=== PATIENT | female | born 1945 | race Caucasian/White ===

== ENCOUNTER 2017-06-15 10:18 | Inpatient (IN) | payer OTHER ==
[~2017-06-15] VITALS: Ht 167.6 cm; Wt 93.1 kg
[~2017-06-15 10:18] MED LIST: ADULT LOW DOSE81 M1 PO; AMOX TR-K CLV1 EAC4 PO; ASPIRIN81 M1 PO; AVASTIN400 MG/16 IV; AZITHROMYCIN250 MG PO; BACTRIM,SEPT1 TABLET PO; Betapace,Sorine PO; CALCIUM600 MG PO; CARDURA2 M1 PO; CEFTIN250 MG PO; CELEBREX200 MG PO; CENTRUM SILVER1 EACH PO; COLACE100 MG PO; COREG12.5 M1 PO; COUMADIN3 M1 PO; COUMADIN6 MG PO; Coumadin,Jantoven PO; DILTIAZEM 24HR240 MG PO; DOXAZOSIN MESYLA2 MG PO; ENDOCET 5-3251 EACH PO; FERROUS SULFAT325 MG PO; FOLIC ACID MC; FOLIC ACID0.4 MG PO; FOLIC ACID1 MG PO; FUROSEMIDE40 MG PO; GLUCOVANCE 21 TABLET PO; GLUCOVANCE 51 TABLET PO; GLYBURID-METFO1 EAC3 PO; GLYBURIDE-METF1 EAC3 PO; HUMALOG100 UNIT/1 SC; IRON325 M1 PO; KLOR-CON 1010 ME1 PO; LANTUS 10100 UNITS/ SQ; LANTUS 3 M100 UNITS/ SC; LANTUS 3 M100 UNITS1 SC; LASIX40 MG PO; LIPITOR80 MG PO; Lopressor PO; METOPROLOL TART50 MG PO; MUCINEX600 MG PO; Micro-K,K-Tab,K-Dur, PO; NOVOLOG 10100 UNITS/ SC; OXYCODONE HCL5 MG PO; PERCOCET 5/31 TABLET PO; PLAVIX75 MG PO; PREDNISONE20 MG PO; PROCARDIA XL30 MG PO; PROVENTIL,2.5 MG/3 M IH; RHINOCORT AQUA8.6 G1 NS; SENOKOT S,PE1 TABLET PO; SIMVASTATIN40 MG PO; SOTALOL80 MG PO; SPIRIVA1 INHALATI IH; TOPROL XL50 MG PO; TYLENOL ARTHRI650 MG PO; VALSARTAN-HCTZ1 EAC3 PO; VITAMIN C500 M1 PO; Vicodin,Norco 5/325 PO; WELCHOL625 MG PO; WOMEN'S DAILY1 EAC2 PO; XYZAL5 MG PO; ZESTRIL,PRINIV2.5 MG PO; ZESTRIL20 MG PO; ZETIA10 MG PO; ZOCOR80 MG PO; ZYRTEC5 MG PO; Zestril,Prinivil PO
[2017-06-15 11:16] LABS: HEMATOCRIT 36.6 % (36.0-46.0); MCHC 29.8 G/DL (30.0-36.0); MCV 100.8 FL (83-99); MEAN PLAT.VOLUME 9.5 uM^3 (9.5-12.4); PLATELET COUNT 264 K/uL (156-360); RBC DIS.WIDTH-CV 14.5 % (11.8-14.6); RBC DIS.WIDTH-SD 53.5 % (39-53); RED BLOOD COUNT 3.63 M/uL (3.80-5.20); WHITE BLOOD COUNT 10.4 K/uL (4.1-10.2)
[2017-06-15 11:26] LABS: CHLORIDE 113 mEq/L (99-109); SODIUM 139 mEq/L (136-147)
[2017-06-15 11:28] LABS: GLUCOSE 176 mg/dL (70-99)
[2017-06-15 11:29] LABS: ANION GAP 7 MEQ/L (2-14)
[2017-06-15 11:32] LABS: GFR ESTIMATE (CALCULATED) 23 mL/min/
[2017-06-15 11:33] LABS: UREA NITROGEN (BUN) 37 mg/dL (9-23)
[2017-06-15 11:38] LABS: TROP-I INTERPRETATION NEGATIVE; TROPONIN-I 0.01 ng/mL (0.0-0.30)
[2017-06-15] MEDS ORDERED: SPIRIVA18 MCG IH (12:37)
[2017-06-15] MEDS ORDERED: PLAVIX75 MG PO (12:38)
[2017-06-15] MEDS ORDERED: PERCOCET 7.51 TABLET PO (12:38)
[2017-06-15] MEDS ORDERED: ATORVASTATIN CA40 MG PO (12:39)
[2017-06-15] MEDS ORDERED: ZITHROMAX250 MG PO (12:40)
[2017-06-15] MEDS ORDERED: DIFLUCAN100 MG PO (12:41)
[2017-06-15] MEDS ORDERED: PRINIVIL20 MG PO (12:42)
[2017-06-15] MEDS ORDERED: ADVAIR 250/501 DISK IH (12:45)
[2017-06-15 16:03] VITALS: BP 120/58
[2017-06-15 18:41] VITALS: BP 123/57
[2017-06-15 19:20] VITALS: BP 129/58
[2017-06-15 20:08] LABS: ANION GAP 8 MEQ/L (2-14); CHLORIDE 108 MEQ/L (99-109); GFR ESTIMATE (CALCULATED) 22 mL/min/; GLUCOSE 154 mg/dL (70-99); POTASSIUM 5.5 MEQ/L (3.7-5.4); SAMPLE HEMOLYSIS CHECK 0; SAMPLE ICTERIC CHECK 0; SAMPLE LIPEMIA CHECK 0; SODIUM 137 MEQ/L (136-147); UREA NITROGEN (BUN) 40 mg/dL (9-23)
[2017-06-15 21:22] LABS: POINT-OF-CARE METER ID UU14314088
[2017-06-15 23:00] VITALS: BP 138/65
[2017-06-16 04:30] VITALS: BP 133/65
[2017-06-16 07:10] LABS: ANION GAP 6 MEQ/L (2-14); CHLORIDE 113 MEQ/L (99-109); GFR ESTIMATE (CALCULATED) 25 mL/min/; POTASSIUM 5.2 MEQ/L (3.7-5.4); SAMPLE HEMOLYSIS CHECK 0; SAMPLE ICTERIC CHECK 0; SAMPLE LIPEMIA CHECK 0; SODIUM 142 MEQ/L (136-147); UREA NITROGEN (BUN) 36 mg/dL (9-23)
[2017-06-16 07:15] LABS: GLUCOSE 108 mg/dL (70-99)
[2017-06-16 08:00] VITALS: BP 145/66
[2017-06-16 08:01] LABS: POINT-OF-CARE METER ID UU14174216
[2017-06-16 09:01] LABS: Estimated Average Glucose 108 mg/dL (70-123); HEMOGLOBIN A1c (GLYCOHEMOGLOB) 5.4 % HGB (Below 5.7)
[2017-06-16 11:40] LABS: POINT-OF-CARE METER ID UU13113698
[2017-06-16 12:35] VITALS: BP 168/71
[2017-06-16 12:56] LABS: ADD MIUA? YES; BILIRUBIN NEGATIVE; BLOOD MODERATE; COLOR YELLOW ((YELLOW)); GLUCOSE (STRIP) 50; KETONES NEGATIVE; LEUKOCYTES LARGE; NITRITE NEGATIVE; PROTEIN (STRIP) 100; UROBILINOGEN 0.2 MG/DL (0.2-1.0)
[2017-06-16 13:31] LABS: BACTERIA RARE /HPF; EPITHELIAL CELLS RARE /HPF; MUCUS NONE SEEN /LPF; WHITE BLOOD CELLS TNTC /HPF (0-5)
[2017-06-16 15:55] VITALS: BP 146/69
[2017-06-16 16:53] LABS: POINT-OF-CARE METER ID UU13113698
[2017-06-16 19:00] VITALS: BP 142/63
[2017-06-16 20:54] LABS: POINT-OF-CARE METER ID UU13113698
[2017-06-17] VITALS (8 sets, daily range): BP systolic 138–160; BP diastolic 62–75
[2017-06-17 05:28] LABS: BASOPHIL COUNT 0.1 K/uL (0-0.1); EOSINOPHIL (%) 0.8 % (0-5); EOSINOPHIL COUNT 0.1 K/uL (0-0.3); HEMATOCRIT 38.1 % (36.0-46.0); IMMATURE GRANULOCYTE (%) 0.4 % (0.0-0.7); IMMATURE GRANULOCYTE COUNT 0.1 K/uL; INSTRUMENT ABS NEUTROPHIL CT 10.4 K/uL; LYMPHOCYTE COUNT 0.8 K/uL (1.0-2.8); MCH 29.1 PG (29.0-34.0); MCHC 28.9 G/DL (30.0-36.0); MCV 100.8 FL (83-99); MONOCYTE COUNT 0.7 K/uL (0-0.8); NEUTROPHIL (%) 86.1 % (45-76); NEUTROPHIL COUNT 10.4 K/uL (1.8-6.4); PLATELET COUNT 292 K/uL (156-360); RBC DIS.WIDTH-CV 14.5 % (11.8-14.6); RBC DIS.WIDTH-SD 53.3 % (39-53); RED BLOOD COUNT 3.78 M/uL (3.80-5.20); WHITE BLOOD COUNT 12.1 K/uL (4.1-10.2)
[2017-06-17 05:51] LABS: ANION GAP 7 MEQ/L (2-14); CHLORIDE 113 MEQ/L (99-109); GFR ESTIMATE (CALCULATED) 31 mL/min/; GLUCOSE 146 mg/dL (70-99); MAGNESIUM 1.7 mg/dl (1.3-2.7); POTASSIUM 5.1 MEQ/L (3.7-5.4); SAMPLE HEMOLYSIS CHECK 0; SAMPLE ICTERIC CHECK 0; SAMPLE LIPEMIA CHECK 0; SODIUM 145 MEQ/L (136-147); UREA NITROGEN (BUN) 29 mg/dL (9-23)
[2017-06-17 06:10] LABS: URIC ACID 6.1 mg/dL (3.1-9.2)
[2017-06-17 07:59] LABS: POINT-OF-CARE METER ID UU13113781
[2017-06-17 09:50] LABS: INTERNAL CONTROL VALID? YES
[2017-06-17 11:28] LABS: POINT-OF-CARE METER ID UU13113781
[2017-06-17 16:25] LABS: POINT-OF-CARE METER ID UU13113781
[2017-06-17 21:11] LABS: POINT-OF-CARE METER ID UU14314088
[2017-06-18 03:36] VITALS: BP 158/74
[2017-06-18 06:15] LABS: ANION GAP 5 MEQ/L (2-14); CHLORIDE 111 MEQ/L (99-109); GFR ESTIMATE (CALCULATED) 34 mL/min/; POTASSIUM 4.3 MEQ/L (3.7-5.4); SAMPLE HEMOLYSIS CHECK 0; SAMPLE ICTERIC CHECK 0; SAMPLE LIPEMIA CHECK 0; SODIUM 141 MEQ/L (136-147); UREA NITROGEN (BUN) 26 mg/dL (9-23)
[2017-06-18 06:17] LABS: GLUCOSE 56 mg/dL (70-99)
[2017-06-18 07:35] LABS: POINT-OF-CARE METER ID UU14174216
[2017-06-18 07:51] VITALS: BP 153/70
[2017-06-18 08:18] LABS: POINT-OF-CARE METER ID UU14174216
[2017-06-18 11:09] VITALS: BP 143/78
[2017-06-18 11:27] LABS: POINT-OF-CARE METER ID UU14174216
[2017-06-18 16:36] LABS: POINT-OF-CARE METER ID UU14174216
[2017-06-18 17:19] VITALS: BP 157/70
[2017-06-18 17:32] LABS: POINT-OF-CARE METER ID UU14174216
[2017-06-18 18:19] LABS: POINT-OF-CARE METER ID UU13113781
[2017-06-18 18:34] LABS: POINT-OF-CARE METER ID UU13113781
[2017-06-18 19:27] VITALS: BP 139/65
[2017-06-18 21:20] LABS: POINT-OF-CARE METER ID UU13113781
[2017-06-18 22:43] VITALS: BP 138/60
[2017-06-19 02:58] VITALS: BP 134/61
[2017-06-19 05:01] LABS: CHLORIDE 112 mEq/L (99-109); POTASSIUM 4.9 mEq/L (3.7-5.4); SODIUM 142 mEq/L (136-147)
[2017-06-19 05:03] LABS: GLUCOSE 49 mg/dL (70-99)
[2017-06-19 05:04] LABS: ANION GAP 6 MEQ/L (2-14)
[2017-06-19 05:07] LABS: GFR ESTIMATE (CALCULATED) 34 mL/min/
[2017-06-19 05:08] LABS: UREA NITROGEN (BUN) 25 mg/dL (9-23)
[2017-06-19 08:19] LABS: POINT-OF-CARE METER ID UU14314088
[2017-06-19 08:30] VITALS: BP 141/63
[2017-06-19 11:42] LABS: POINT-OF-CARE METER ID UU14314088
[2017-06-19 12:24] VITALS: BP 137/63
[2017-06-19 16:34] LABS: POINT-OF-CARE METER ID UU14314088
[2017-06-19 17:21] VITALS: BP 157/74
[2017-06-19 19:10] VITALS: BP 141/68
[2017-06-19 20:38] LABS: POINT-OF-CARE METER ID UU14314088
[2017-06-20] VITALS (7 sets, daily range): BP systolic 126–165; BP diastolic 59–74
[2017-06-20 05:59] LABS: INTER. NORMALIZED RATIO 1.1
[2017-06-20 06:02] LABS: PTT 35.5 SEC (25-37)
[2017-06-20 06:26] LABS: ANION GAP 3 MEQ/L (2-14); CHLORIDE 112 MEQ/L (99-109); GFR ESTIMATE (CALCULATED) 31 mL/min/; POTASSIUM 5.1 MEQ/L (3.7-5.4); SAMPLE HEMOLYSIS CHECK 0; SAMPLE ICTERIC CHECK 0; SAMPLE LIPEMIA CHECK 0; SODIUM 142 MEQ/L (136-147); UREA NITROGEN (BUN) 25 mg/dL (9-23)
[2017-06-20 06:27] LABS: GLUCOSE 88 mg/dL (70-99)
[2017-06-20 11:27] LABS: POINT-OF-CARE METER ID UU14314088
[2017-06-20 16:31] LABS: POINT-OF-CARE METER ID UU13113698
[2017-06-20 20:55] LABS: POINT-OF-CARE METER ID UU13113698
[2017-06-21 04:14] VITALS: BP 135/62
[2017-06-21 07:00] VITALS: BP 189/77
[2017-06-21 08:26] LABS: POINT-OF-CARE METER ID UU14174216
[2017-06-21 10:13] LABS: TYPE OF FLUID PLEURAL
[2017-06-21 11:25] LABS: BODY FLUID LDH 37 IU/L
[2017-06-21 11:28] LABS: BODY FLUID PROTEIN < 3.0 G/DL
[2017-06-21 11:51] LABS: POINT-OF-CARE METER ID UU14174216
[2017-06-21 12:02] LABS: BODY FLUID EOSINOPHILS 0 % (0-25); BODY FLUID RBC'S < 1000 /MM^3 (0-100); BODY FLUID WBC'S 253 /MM^3 (0-500); MONONUCLEAR WBC'S 83 %; POLYNUCLEAR WBC'S 17 % (0-25)
[2017-06-21 13:40] LABS: LACTATE DEHYDROGENASE 195 IU/L (20-246)
[2017-06-21 13:41] LABS: GLUCOSE 137 mg/dL (70-99)
[2017-06-21 17:16] LABS: POINT-OF-CARE METER ID UU13113781
[2017-06-21 19:07] VITALS: BP 133/61
[2017-06-21 21:11] LABS: POINT-OF-CARE METER ID UU13113781
[2017-06-21 23:39] VITALS: BP 124/63
[2017-06-22 03:18] VITALS: BP 147/65
[2017-06-22 07:10] VITALS: BP 161/74
[2017-06-22 07:51] LABS: POINT-OF-CARE METER ID UU14314088
[2017-06-22 08:58] VITALS: BP 161/74
[2017-06-22 11:13] LABS: POINT-OF-CARE METER ID UU14174216
[2017-06-22 11:14] VITALS: BP 162/70
[2017-06-22 16:50] LABS: POINT-OF-CARE METER ID UU14174216
[2017-06-22 19:57] VITALS: BP 171/70
[2017-06-22 20:55] LABS: POINT-OF-CARE METER ID UU14174216
[2017-06-23 00:30] VITALS: BP 126/59
[2017-06-23 03:24] VITALS: BP 158/69
[2017-06-23 06:50] VITALS: BP 150/78
[2017-06-23 08:22] LABS: POINT-OF-CARE METER ID UU13113698; POINT-OF-CARE USER ID NUTSLF44
[2017-06-23 11:06] VITALS: BP 149/67
[2017-06-23 11:51] LABS: POINT-OF-CARE METER ID UU13113698; POINT-OF-CARE USER ID NUTSLF44
== END 2017-06-23 13:25 | disposition home health service (06) | DRG 193 ==
LOC: EME 10:18 → 4EAST 13:09 → EDOF 13:09 → ENRESERV 13:10 → 3EAST 15:28 → ENRESERV 17:49 → 4EAST 18:21
PROVIDERS: Emergency Medicine; Internal Medicine; Internal Medicine Nephrology; Internal Medicine Pulmonary Disease; Radiology Diagnostic Radiology
PROC: 0W993ZZ Drainage of Right Pleural Cavity, Percutaneous Approach (ICD-10-PCS; principal; 2017-06-21)
DX: J18.9 Pneumonia, unspecified organism (principal); J90 Pleural effusion, not elsewhere classified; J44.0 Chronic obstructive pulmonary disease with (acute) lower respiratory infection; J44.1 Chronic obstructive pulmonary disease with (acute) exacerbation; N17.0 Acute kidney failure with tubular necrosis; T39.395A Adverse effect of other nonsteroidal anti-inflammatory drugs [NSAID], initial encounter; T46.4X5A Adverse effect of angiotensin-converting-enzyme inhibitors, initial encounter; T50.1X5A Adverse effect of loop [high-ceiling] diuretics, initial encounter; E87.5 Hyperkalemia; E11.22 Type 2 diabetes mellitus with diabetic chronic kidney disease; I12.9 Hypertensive chronic kidney disease with stage 1 through stage 4 chronic kidney disease, or unspecified chronic kidney disease; N18.3 Chronic kidney disease, stage 3 (moderate); E78.5 Hyperlipidemia, unspecified; I08.0 Rheumatic disorders of both mitral and aortic valves; I25.10 Atherosclerotic heart disease of native coronary artery without angina pectoris; I48.0 Paroxysmal atrial fibrillation; E66.9 Obesity, unspecified; Z96.643 Presence of artificial hip joint, bilateral; Z68.32 Body mass index [BMI] 32.0-32.9, adult; Z79.4 Long term (current) use of insulin; Z99.81 Dependence on supplemental oxygen; Z95.5 Presence of coronary angioplasty implant and graft; Z85.43 Personal history of malignant neoplasm of ovary; Z87.891 Personal history of nicotine dependence; Z79.82 Long term (current) use of aspirin; Z79.02 Long term (current) use of antithrombotics/antiplatelets
CPT/HCPCS: 71010; 71020; 76770; 76942; 80048; 80048 91; 80069; 81003; 82945; 82947; 82948; 83036; 83615; 83615 91; 83735; 84100; 84155; 84157; 84484; 84550; 85025; 85027; 85610; 85730; 87070; 87075; 87116; 87205; 87206; 87449; 88108; 88305; 89051; 93005; 94010; 94640; 94640 76; 94760; 94799; 97530 GO; 97530 GP; 99202; 99281; 99285; J0456; J0696; J1815; J7030; J7050

== ENCOUNTER → 2017-07-25 | Outpatient (CLI) | payer OTHER ==
[~2017-07-25] VITALS: Ht 167.6 cm; Wt 86.0 kg
[~2017-07-25] MED LIST changes: +ADVAIR 250/501 DISK IH; +ATORVASTATIN CA40 MG PO; +DIFLUCAN100 MG PO; +PERCOCET 7.51 TABLET PO; +PRINIVIL20 MG PO; +SPIRIVA18 MCG IH; +ZITHROMAX250 MG PO
[2017-07-25 09:36] LABS: TYPE OF FLUID PLEURAL
[2017-07-25 09:48] LABS: BODY FLUID RBC'S < 1000 /MM^3 (0-100); BODY FLUID WBC'S 461 /MM^3 (0-500)
[2017-07-25 10:10] LABS: BODY FLUID EOSINOPHILS 0 % (0-25); MONONUCLEAR WBC'S 88 %; POLYNUCLEAR WBC'S 12 % (0-25)
[2017-07-25 10:18] LABS: BODY FLUID LDH 42 IU/L; BODY FLUID PROTEIN < 3.0 G/DL
== END | disposition home or self-care (01) ==
LOC: RAD 08:30 → AMB 08:30 → RAD 08:33
PROVIDERS: Radiology Diagnostic Radiology
PROC: 0W993ZZ Drainage of Right Pleural Cavity, Percutaneous Approach (ICD-10-PCS; principal; 2017-07-25)
DX: J90 Pleural effusion, not elsewhere classified (principal)
CPT/HCPCS: 76942; 82945; 83615 91; 84157; 87070; 87205; 88108; 89051

== ENCOUNTER 2017-07-30 17:13 | Emergency (ER) | payer OTHER ==
[~2017-07-30] VITALS: Ht 167.6 cm; Wt 88.4 kg
[~2017-07-30 17:13] MED LIST changes: -SPIRIVA18 MCG IH
[2017-07-30 17:29] LABS: POINT-OF-CARE METER ID UU13113747; POINT-OF-CARE USER ID LABGLH01
[2017-07-30 17:47] LABS: HEMATOCRIT 36.5 % (36.0-46.0); MCH 30.3 PG (29.0-34.0); MCHC 30.4 G/DL (30.0-36.0); MCV 99.7 FL (83-99); MEAN PLAT.VOLUME 9.4 uM^3 (9.5-12.4); PLATELET COUNT 289 K/uL (156-360); RBC DIS.WIDTH-CV 14.5 % (11.8-14.6); RBC DIS.WIDTH-SD 53.1 % (39-53); RED BLOOD COUNT 3.66 M/uL (3.80-5.20); WHITE BLOOD COUNT 8.5 K/uL (4.1-10.2)
[2017-07-30 18:03] LABS: CHLORIDE 108 mEq/L (99-109); POTASSIUM 5.2 mEq/L (3.7-5.4); SODIUM 140 mEq/L (136-147)
[2017-07-30 18:04] LABS: GLUCOSE 142 mg/dL (70-99)
[2017-07-30 18:06] LABS: ANION GAP 9 MEQ/L (2-14)
[2017-07-30 18:08] LABS: GFR ESTIMATE (CALCULATED) 21 mL/min/
[2017-07-30 18:09] LABS: UREA NITROGEN (BUN) 40 mg/dL (9-23)
[2017-07-30 18:10] LABS: TROP-I INTERPRETATION NEGATIVE; TROPONIN-I < 0.01 ng/mL (0.0-0.30)
[2017-07-30 19:30] LABS: POINT-OF-CARE METER ID UU13113747
[2017-07-30 19:54] LABS: ADD MIUA? YES; BILIRUBIN NEGATIVE; BLOOD NEGATIVE; COLOR YELLOW ((YELLOW)); GLUCOSE (STRIP) 50; KETONES NEGATIVE; LEUKOCYTES NEGATIVE; NITRITE NEGATIVE; PROTEIN (STRIP) >=500; SPECIFIC GRAVITY 1.011 (1.000-1.030); UROBILINOGEN 0.2 MG/DL (0.2-1.0)
[2017-07-30 19:57] LABS: BACTERIA RARE /HPF; EPITHELIAL CELLS RARE /HPF; HYALINE CASTS 0-5 /LPF; MUCUS TRACE /LPF; RED BLOOD CELLS 0-5 /HPF (0-5); WHITE BLOOD CELLS 0-5 /HPF (0-5)
[2017-07-30 20:46] LABS: POINT-OF-CARE METER ID UU13113747
[2017-07-30 22:42] VITALS: BP 183/74
== END 2017-07-31 00:06 | disposition home or self-care (01) ==
LOC: EME 17:13
PROVIDERS: Physician Assistant Medical
DX: E11.649 Type 2 diabetes mellitus with hypoglycemia without coma (principal); Z79.4 Long term (current) use of insulin; I13.0 Hypertensive heart and chronic kidney disease with heart failure and stage 1 through stage 4 chronic kidney disease, or unspecified chronic kidney disease; I50.9 Heart failure, unspecified; E11.22 Type 2 diabetes mellitus with diabetic chronic kidney disease; N18.9 Chronic kidney disease, unspecified; E78.5 Hyperlipidemia, unspecified; J44.9 Chronic obstructive pulmonary disease, unspecified; Z79.82 Long term (current) use of aspirin; Z79.02 Long term (current) use of antithrombotics/antiplatelets; Z85.43 Personal history of malignant neoplasm of ovary; Z96.643 Presence of artificial hip joint, bilateral; Z87.891 Personal history of nicotine dependence
CPT/HCPCS: 71010; 80048; 81003; 82948; 84484; 85027; 93005; 99281; 99285; J7040

== ENCOUNTER 2017-08-09 16:14 | Inpatient (IN) | payer OTHER ==
[~2017-08-09] VITALS: Ht 165.1 cm; Wt 86.7 kg
[2017-08-09 17:07] LABS: EOSINOPHIL (%) 0.2 % (0-5); HEMATOCRIT 16.6 % (36.0-46.0); IMMATURE GRANULOCYTE COUNT 0.2 K/uL; INSTRUMENT ABS NEUTROPHIL CT 14.5 K/uL; INTER. NORMALIZED RATIO 1.1; LYMPHOCYTE COUNT 1.2 K/uL (1.0-2.8); MCH 31.1 PG (29.0-34.0); MCHC 30.7 G/DL (30.0-36.0); MCV 101.2 FL (83-99); MEAN PLAT.VOLUME 9.8 uM^3 (9.5-12.4); MONOCYTE (%) 3.8 % (3-12); MONOCYTE COUNT 0.6 K/uL (0-0.8); NEUTROPHIL (%) 87.9 % (45-76); NEUTROPHIL COUNT 14.5 K/uL (1.8-6.4); PLATELET COUNT 337 K/uL (156-360); PROTHROMBIN TIME 12.7 SEC (10.2-12.9); RBC DIS.WIDTH-CV 14.8 % (11.8-14.6); RBC DIS.WIDTH-SD 54.6 % (39-53); RED BLOOD COUNT 1.64 M/uL (3.80-5.20); WHITE BLOOD COUNT 16.5 K/uL (4.1-10.2)
[2017-08-09 17:09] LABS: PTT 29.8 SEC (25-37)
[2017-08-09 17:16] LABS: CHLORIDE 107 mEq/L (99-109); POTASSIUM 5.8 mEq/L (3.7-5.4); SODIUM 138 mEq/L (136-147)
[2017-08-09 17:18] LABS: GLUCOSE 263 mg/dL (70-99)
[2017-08-09 17:19] LABS: ANION GAP 11 MEQ/L (2-14)
[2017-08-09 17:20] LABS: TOTAL BILIRUBIN 0.1 mg/dL (0.0-1.0)
[2017-08-09 17:22] LABS: ALKALINE PHOSPHATASE 39 IU/L (3-129); GFR ESTIMATE (CALCULATED) 22 mL/min/
[2017-08-09 17:27] LABS: TROP-I INTERPRETATION NEGATIVE; TROPONIN-I < 0.01 ng/mL (0.0-0.30); UREA NITROGEN (BUN) 116 mg/dL (9-23)
[2017-08-09 18:35] LABS: ADD MIUA? YES; BILIRUBIN NEGATIVE; BLOOD NEGATIVE; COLOR YELLOW ((YELLOW)); GLUCOSE (STRIP) 50; KETONES NEGATIVE; LEUKOCYTES TRACE; NITRITE NEGATIVE; PROTEIN (STRIP) >=500; SPECIFIC GRAVITY 1.014 (1.000-1.030); UROBILINOGEN 0.2 MG/DL (0.2-1.0)
[2017-08-09 18:47] LABS: BACTERIA NONE SEEN /HPF; EPITHELIAL CELLS RARE /HPF; MUCUS TRACE /LPF; RED BLOOD CELLS 0-5 /HPF (0-5); UCUL ADDED? NO; WHITE BLOOD CELLS 0-5 /HPF (0-5)
[2017-08-09] MEDS ORDERED: WELCHOL625 MG PO (19:38)
[2017-08-09] MEDS ORDERED: OXYCODONE-APAP1 EAC6 PO (19:43)
[2017-08-09] MEDS ORDERED: LEVOFLOXACIN500 MG PO (19:53)
[2017-08-09 20:30] VITALS: BP 123/57
[2017-08-09 21:38] VITALS: BP 117/67
[2017-08-09 22:58] LABS: POINT-OF-CARE METER ID UU14149397
[2017-08-09 23:53] VITALS: BP 95/49
[2017-08-10] VITALS (13 sets, daily range): BP systolic 100–128; BP diastolic 52–84
[2017-08-10 06:22] LABS: HEMATOCRIT 22.1 % (36.0-46.0)
[2017-08-10 06:42] LABS: ANION GAP 6 MEQ/L (2-14); CHLORIDE 114 MEQ/L (99-109); GFR ESTIMATE (CALCULATED) 23 mL/min/; POTASSIUM 4.9 MEQ/L (3.7-5.4); SAMPLE HEMOLYSIS CHECK 0; SAMPLE ICTERIC CHECK 0; SAMPLE LIPEMIA CHECK 0; SODIUM 143 MEQ/L (136-147); UREA NITROGEN (BUN) 96 mg/dL (9-23)
[2017-08-10 06:47] LABS: POINT-OF-CARE METER ID UU14149397
[2017-08-10 06:48] LABS: GLUCOSE 83 mg/dL (70-99)
[2017-08-10 06:54] LABS: MCV 96.9 FL (83-99)
[2017-08-10 11:48] LABS: POINT-OF-CARE METER ID UU14149397
[2017-08-10 14:11] LABS: POINT-OF-CARE METER ID UU13113819
[2017-08-10 15:39] LABS: HEMATOCRIT 27.2 % (36.0-46.0); MCH 30.5 PG (29.0-34.0); MCV 95.4 FL (83-99); MEAN PLAT.VOLUME 9.3 uM^3 (9.5-12.4); PLATELET COUNT 287 K/uL (156-360); RBC DIS.WIDTH-CV 15.7 % (11.8-14.6); RBC DIS.WIDTH-SD 53.5 % (39-53); WHITE BLOOD COUNT 13.4 K/uL (4.1-10.2)
[2017-08-10 15:40] LABS: RED BLOOD COUNT 2.85 M/uL (3.80-5.20)
[2017-08-10 16:43] LABS: POINT-OF-CARE METER ID UU14149397
[2017-08-11 01:58] LABS: POINT-OF-CARE METER ID UU14149397
[2017-08-11 04:35] VITALS: BP 138/63
[2017-08-11 06:16] LABS: HEMATOCRIT 25.6 % (36.0-46.0); MCH 31.5 PG (29.0-34.0); MCV 98.5 FL (83-99); MEAN PLAT.VOLUME 9.6 uM^3 (9.5-12.4); PLATELET COUNT 256 K/uL (156-360); RBC DIS.WIDTH-CV 16.1 % (11.8-14.6); RBC DIS.WIDTH-SD 56.1 % (39-53); WHITE BLOOD COUNT 10.1 K/uL (4.1-10.2)
[2017-08-11 06:38] LABS: ANION GAP 5 MEQ/L (2-14); CHLORIDE 114 MEQ/L (99-109); GFR ESTIMATE (CALCULATED) 26 mL/min/; POTASSIUM 4.7 MEQ/L (3.7-5.4); SAMPLE HEMOLYSIS CHECK 0; SAMPLE ICTERIC CHECK 0; SAMPLE LIPEMIA CHECK 0; SODIUM 143 MEQ/L (136-147); UREA NITROGEN (BUN) 76 mg/dL (9-23)
[2017-08-11 06:39] LABS: GLUCOSE 158 mg/dL (70-99)
[2017-08-11 07:31] LABS: POINT-OF-CARE METER ID UU14188577
[2017-08-11 07:40] VITALS: BP 127/63
[2017-08-11 07:44] VITALS: BP 124/56
[2017-08-11 11:40] LABS: POINT-OF-CARE METER ID UU14117124
[2017-08-11 11:45] VITALS: BP 126/60
[2017-08-11 16:21] VITALS: BP 115/57
[2017-08-11 16:40] LABS: POINT-OF-CARE METER ID UU14208753
[2017-08-11 17:37] LABS: MCV 98.5 FL (83-99)
[2017-08-11 18:35] LABS: UR CREATININE CONCENTRATION 56.2 MG/DL
[2017-08-11 19:39] VITALS: BP 125/60
[2017-08-11 21:39] LABS: POINT-OF-CARE METER ID UU14117124
[2017-08-12] VITALS (15 sets, daily range): BP systolic 95–131; BP diastolic 43–75
[2017-08-12 06:28] LABS: POINT-OF-CARE METER ID UU14149397
[2017-08-12 06:53] LABS: EOSINOPHIL COUNT 0.2 K/uL (0-0.3); HEMATOCRIT 24.8 % (36.0-46.0); IMMATURE GRANULOCYTE (%) 0.5 % (0.0-0.7); INSTRUMENT ABS NEUTROPHIL CT 5.5 K/uL; LYMPHOCYTE COUNT 1.1 K/uL (1.0-2.8); MCH 30.7 PG (29.0-34.0); MCHC 30.2 G/DL (30.0-36.0); MCV 101.6 FL (83-99); MEAN PLAT.VOLUME 9.9 uM^3 (9.5-12.4); MONOCYTE (%) 10.9 % (3-12); MONOCYTE COUNT 0.8 K/uL (0-0.8); NEUTROPHIL (%) 72.2 % (45-76); NEUTROPHIL COUNT 5.5 K/uL (1.8-6.4); PLATELET COUNT 254 K/uL (156-360); RBC DIS.WIDTH-CV 15.9 % (11.8-14.6); RBC DIS.WIDTH-SD 57.2 % (39-53); RED BLOOD COUNT 2.44 M/uL (3.80-5.20); WHITE BLOOD COUNT 7.6 K/uL (4.1-10.2)
[2017-08-12 07:17] LABS: ANION GAP 5 MEQ/L (2-14); CHLORIDE 114 MEQ/L (99-109); GFR ESTIMATE (CALCULATED) 20 mL/min/; POTASSIUM 5.1 MEQ/L (3.7-5.4); SAMPLE HEMOLYSIS CHECK 0; SAMPLE ICTERIC CHECK 0; SAMPLE LIPEMIA CHECK 0; SODIUM 144 MEQ/L (136-147); UREA NITROGEN (BUN) 64 mg/dL (9-23)
[2017-08-12 07:19] LABS: GLUCOSE 99 mg/dL (70-99)
[2017-08-12 12:07] LABS: POINT-OF-CARE METER ID UU14117124
[2017-08-12 17:11] LABS: POINT-OF-CARE METER ID UU14117124
[2017-08-12 21:57] LABS: POINT-OF-CARE METER ID UU14149397
[2017-08-13 00:26] VITALS: BP 100/48
[2017-08-13 02:44] LABS: HEMATOCRIT 31.8 % (36.0-46.0); MCV 99.1 FL (83-99)
[2017-08-13 03:30] VITALS: BP 118/55
[2017-08-13 06:31] LABS: POINT-OF-CARE METER ID UU14117124
[2017-08-13 06:37] LABS: ANION GAP 6 MEQ/L (2-14); CHLORIDE 113 MEQ/L (99-109); GFR ESTIMATE (CALCULATED) 18 mL/min/; GLUCOSE 127 mg/dL (70-99); POTASSIUM 5.4 MEQ/L (3.7-5.4); SAMPLE HEMOLYSIS CHECK 0; SAMPLE ICTERIC CHECK 0; SAMPLE LIPEMIA CHECK 0; SODIUM 143 MEQ/L (136-147); UREA NITROGEN (BUN) 61 mg/dL (9-23)
[2017-08-13 07:50] VITALS: BP 141/66
[2017-08-13 11:50] VITALS: BP 149/65
[2017-08-13 11:52] LABS: POINT-OF-CARE METER ID UU14117124
[2017-08-13 15:47] VITALS: BP 101/56
[2017-08-13 16:53] LABS: POINT-OF-CARE METER ID UU14149397
[2017-08-13 20:30] VITALS: BP 122/56
[2017-08-13 21:11] LABS: POINT-OF-CARE METER ID UU14117124
[2017-08-14 00:06] VITALS: BP 142/82
[2017-08-14 06:12] LABS: POINT-OF-CARE METER ID UU14149397
[2017-08-14 07:05] LABS: HEMATOCRIT 37.1 % (36.0-46.0); MCH 30.2 PG (29.0-34.0); MCHC 30.5 G/DL (30.0-36.0); MCV 99.2 FL (83-99); MEAN PLAT.VOLUME 9.5 uM^3 (9.5-12.4); PLATELET COUNT 314 K/uL (156-360); RBC DIS.WIDTH-CV 16.8 % (11.8-14.6); RBC DIS.WIDTH-SD 57.1 % (39-53); WHITE BLOOD COUNT 9.7 K/uL (4.1-10.2)
[2017-08-14 07:15] LABS: RED BLOOD COUNT 3.74 M/uL (3.80-5.20)
[2017-08-14 07:43] LABS: ANION GAP 6 MEQ/L (2-14); CHLORIDE 113 MEQ/L (99-109); GFR ESTIMATE (CALCULATED) 26 mL/min/; GLUCOSE 137 mg/dL (70-99); POTASSIUM 4.6 MEQ/L (3.7-5.4); SAMPLE HEMOLYSIS CHECK 0; SAMPLE ICTERIC CHECK 0; SAMPLE LIPEMIA CHECK 0; SODIUM 145 MEQ/L (136-147); UREA NITROGEN (BUN) 45 mg/dL (9-23)
[2017-08-14 08:06] VITALS: BP 110/83
[2017-08-14 11:32] VITALS: BP 149/65
[2017-08-14 11:40] LABS: POINT-OF-CARE METER ID UU14117124
[2017-08-14 15:09] LABS: POINT-OF-CARE METER ID UU14107333
[2017-08-14 17:51] LABS: POINT-OF-CARE METER ID UU14149397
[2017-08-14 19:55] VITALS: BP 140/64
[2017-08-14 21:33] LABS: POINT-OF-CARE METER ID UU14117124
[2017-08-14 23:36] VITALS: BP 141/68
[2017-08-15] VITALS (7 sets, daily range): BP systolic 116–179; BP diastolic 56–74
[2017-08-15 05:55] LABS: BASOPHIL COUNT 0.1 K/uL (0-0.1); EOSINOPHIL (%) 2.5 % (0-5); EOSINOPHIL COUNT 0.2 K/uL (0-0.3); HEMATOCRIT 32.4 % (36.0-46.0); IMMATURE GRANULOCYTE (%) 0.4 % (0.0-0.7); INSTRUMENT ABS NEUTROPHIL CT 5.4 K/uL; LYMPHOCYTE COUNT 1.1 K/uL (1.0-2.8); MCH 30.4 PG (29.0-34.0); MCHC 30.6 G/DL (30.0-36.0); MCV 99.4 FL (83-99); MEAN PLAT.VOLUME 9.7 uM^3 (9.5-12.4); MONOCYTE (%) 9.9 % (3-12); MONOCYTE COUNT 0.7 K/uL (0-0.8); NEUTROPHIL (%) 72.1 % (45-76); NEUTROPHIL COUNT 5.4 K/uL (1.8-6.4); PLATELET COUNT 278 K/uL (156-360); RBC DIS.WIDTH-CV 16.3 % (11.8-14.6); RBC DIS.WIDTH-SD 55.6 % (39-53); RED BLOOD COUNT 3.26 M/uL (3.80-5.20); WHITE BLOOD COUNT 7.5 K/uL (4.1-10.2)
[2017-08-15 06:30] LABS: ANION GAP 5 MEQ/L (2-14); CHLORIDE 112 MEQ/L (99-109); GFR ESTIMATE (CALCULATED) 29 mL/min/; GLUCOSE 178 mg/dL (70-99); POTASSIUM 4.6 MEQ/L (3.7-5.4); SAMPLE HEMOLYSIS CHECK 0; SAMPLE ICTERIC CHECK 0; SAMPLE LIPEMIA CHECK 0; SODIUM 143 MEQ/L (136-147); UREA NITROGEN (BUN) 36 mg/dL (9-23)
[2017-08-15 06:50] LABS: POINT-OF-CARE METER ID UU14117124
[2017-08-15 11:14] LABS: POINT-OF-CARE METER ID UU14117124
[2017-08-15 16:12] LABS: POINT-OF-CARE METER ID UU14117124
[2017-08-15 21:38] LABS: POINT-OF-CARE METER ID UU14117124
[2017-08-16 03:52] VITALS: BP 113/56
[2017-08-16 06:46] LABS: EOSINOPHIL (%) 2.2 % (0-5); EOSINOPHIL COUNT 0.2 K/uL (0-0.3); HEMATOCRIT 32.3 % (36.0-46.0); IMMATURE GRANULOCYTE (%) 1.2 % (0.0-0.7); IMMATURE GRANULOCYTE COUNT 0.1 K/uL; INSTRUMENT ABS NEUTROPHIL CT 5.1 K/uL; LYMPHOCYTE COUNT 1.1 K/uL (1.0-2.8); MCH 30.1 PG (29.0-34.0); MCV 100.3 FL (83-99); MEAN PLAT.VOLUME 9.8 uM^3 (9.5-12.4); MONOCYTE (%) 10.4 % (3-12); MONOCYTE COUNT 0.8 K/uL (0-0.8); NEUTROPHIL (%) 70.2 % (45-76); NEUTROPHIL COUNT 5.1 K/uL (1.8-6.4); PLATELET COUNT 246 K/uL (156-360); RBC DIS.WIDTH-SD 56.6 % (39-53); RED BLOOD COUNT 3.22 M/uL (3.80-5.20); WHITE BLOOD COUNT 7.3 K/uL (4.1-10.2)
[2017-08-16 06:58] LABS: POINT-OF-CARE METER ID UU14149397
[2017-08-16 07:03] VITALS: BP 146/63
[2017-08-16 07:33] LABS: ANION GAP 4 MEQ/L (2-14); CHLORIDE 114 MEQ/L (99-109); GFR ESTIMATE (CALCULATED) 25 mL/min/; GLUCOSE 177 mg/dL (70-99); SAMPLE HEMOLYSIS CHECK 0; SAMPLE ICTERIC CHECK 0; SAMPLE LIPEMIA CHECK 0; SODIUM 142 MEQ/L (136-147); UREA NITROGEN (BUN) 32 mg/dL (9-23)
[2017-08-16 11:24] LABS: POINT-OF-CARE METER ID UU14117124
[2017-08-16 11:36] VITALS: BP 147/67
[2017-08-16 15:29] VITALS: BP 158/70
[2017-08-16 16:15] LABS: POINT-OF-CARE METER ID UU14117124
[2017-08-16 19:05] VITALS: BP 136/63
[2017-08-16 21:34] LABS: POINT-OF-CARE METER ID UU14208753
[2017-08-16 23:13] VITALS: BP 142/66
[2017-08-17 03:46] VITALS: BP 140/65
[2017-08-17 06:37] LABS: POINT-OF-CARE METER ID UU14208753
[2017-08-17 07:01] LABS: EOSINOPHIL (%) 2.6 % (0-5); EOSINOPHIL COUNT 0.2 K/uL (0-0.3); IMMATURE GRANULOCYTE (%) 0.5 % (0.0-0.7); INSTRUMENT ABS NEUTROPHIL CT 4.1 K/uL; LYMPHOCYTE COUNT 1.1 K/uL (1.0-2.8); MCH 29.9 PG (29.0-34.0); MCV 99.7 FL (83-99); MEAN PLAT.VOLUME 9.4 uM^3 (9.5-12.4); MONOCYTE (%) 9.9 % (3-12); MONOCYTE COUNT 0.6 K/uL (0-0.8); NEUTROPHIL (%) 68.2 % (45-76); NEUTROPHIL COUNT 4.1 K/uL (1.8-6.4); PLATELET COUNT 240 K/uL (156-360); RBC DIS.WIDTH-CV 15.9 % (11.8-14.6); RBC DIS.WIDTH-SD 55.5 % (39-53); RED BLOOD COUNT 3.11 M/uL (3.80-5.20); WHITE BLOOD COUNT 6.1 K/uL (4.1-10.2)
[2017-08-17 07:33] LABS: ANION GAP 3 MEQ/L (2-14); CHLORIDE 113 MEQ/L (99-109); GFR ESTIMATE (CALCULATED) 26 mL/min/; GLUCOSE 147 mg/dL (70-99); POTASSIUM 4.4 MEQ/L (3.7-5.4); SAMPLE HEMOLYSIS CHECK 0; SAMPLE ICTERIC CHECK 0; SAMPLE LIPEMIA CHECK 0; SODIUM 144 MEQ/L (136-147); UREA NITROGEN (BUN) 28 mg/dL (9-23)
[2017-08-17 08:00] VITALS: BP 124/59
[2017-08-17] MEDS ORDERED: GLUCOTROL5 MG PO (10:56)
[2017-08-17] MEDS ORDERED: PERCOCET 7.51 TABLET PO (10:56)
[2017-08-17 11:51] LABS: POINT-OF-CARE METER ID UU14208753
== END 2017-08-17 12:30 | disposition home or self-care (01) | DRG 811 ==
LOC: EME 16:14 → EDOF 18:50 → 3EAST 18:50 → ENRESERV 18:51 → 3EAST 20:14
PROVIDERS: Emergency Medicine; Internal Medicine; Internal Medicine Gastroenterology; Internal Medicine Nephrology
PROC: 0DB68ZX Excision of Stomach, Via Natural or Artificial Opening Endoscopic, Diagnostic (ICD-10-PCS; principal; 2017-08-09)
PROC: 0DBN8ZX Excision of Sigmoid Colon, Via Natural or Artificial Opening Endoscopic, Diagnostic (ICD-10-PCS; 2017-08-14)
DX: D50.9 Iron deficiency anemia, unspecified (principal); I50.9 Heart failure, unspecified; E66.9 Obesity, unspecified; I13.0 Hypertensive heart and chronic kidney disease with heart failure and stage 1 through stage 4 chronic kidney disease, or unspecified chronic kidney disease; N17.9 Acute kidney failure, unspecified; E87.5 Hyperkalemia; K26.9 Duodenal ulcer, unspecified as acute or chronic, without hemorrhage or perforation; K64.8 Other hemorrhoids; K25.4 Chronic or unspecified gastric ulcer with hemorrhage; E11.22 Type 2 diabetes mellitus with diabetic chronic kidney disease; D63.1 Anemia in chronic kidney disease; E03.9 Hypothyroidism, unspecified; K27.9 Peptic ulcer, site unspecified, unspecified as acute or chronic, without hemorrhage or perforation; J43.9 Emphysema, unspecified; I25.10 Atherosclerotic heart disease of native coronary artery without angina pectoris; N18.3 Chronic kidney disease, stage 3 (moderate); E78.5 Hyperlipidemia, unspecified; I48.0 Paroxysmal atrial fibrillation; K63.5 Polyp of colon; Z96.643 Presence of artificial hip joint, bilateral; Z90.710 Acquired absence of both cervix and uterus; Z87.01 Personal history of pneumonia (recurrent); Z92.21 Personal history of antineoplastic chemotherapy; Z87.891 Personal history of nicotine dependence; Z79.82 Long term (current) use of aspirin; Z85.43 Personal history of malignant neoplasm of ovary; Z68.31 Body mass index [BMI] 31.0-31.9, adult; Z95.5 Presence of coronary angioplasty implant and graft; Z79.4 Long term (current) use of insulin; Z79.02 Long term (current) use of antithrombotics/antiplatelets; Z98.42 Cataract extraction status, left eye
CPT/HCPCS: 71010; 80048; 80053; 80069; 81003; 82570; 82948; 83605; 83880; 84156; 84484; 85014; 85018; 85025; 85027; 85610; 85730; 86850; 86870; 86900; 86901; 86920; 87040; 88305; 88342 TC; 93005; 94640; 94640 76; 94799; 99281; 99285; C9113; J1815; J1940; J2405; J7030; P9016